=== PATIENT | male | born 1945 | race Caucasian/White ===

== ENCOUNTER → 2016-07-25 | Outpatient (CLI) | payer OTHER ==
[~2016-07-25] MED LIST: GADOBUTROL 10 ML VIAL IVP ONE
--- NOTE | 2016-07-25 15:34 | MR ---
MRI of the Brain(Without and With Contrast) Contrast: 8 mL intravenous Gadavist without complication. History: Follow-up left occipital glioblastoma multiforme Comparison: 05/13/16 Technique: Sagittal and axial T1-weighted images. Axial fast T2 2nd echo, GRE, diffusion and FLAIR im ages. Postgadolinium sagittal, axial and coronal images. Findings: The left occipital surgical bed is stable without evidence of abnormal marginal or internal enhancement. Adjacent gliosis/vasogenic edema is stable. The overlying occipital bone flap remains i n excellent position. The ambient cistern remains patent. There are no abnormal extra-axial fluid col lections. Ventricular size is stable and normal. The remainder of the brain remains normal. Impression: Stable left occipital operative bed. No evidence for recurrent glioblastoma.
== END ==
LOC: FIMAGING 11:59
PROVIDERS: ATTEND Internal Medicine Hematology & Oncology
DX: Z08 Encounter for follow-up examination after completed treatment for malignant neoplasm (principal)
CPT/HCPCS: A9585

== ENCOUNTER → 2016-10-25 | Outpatient (CLI) | payer OTHER ==
[2016-10-25 07:29] LABS: CREATININE 0.7 mg/dL (0.7-1.3); GLOMERULAR FILTRATION RATE > 60
== END ==
LOC: FIMAGING 06:40
PROVIDERS: ATTEND Internal Medicine Hematology & Oncology
DX: Z85.841 Personal history of malignant neoplasm of brain (principal); Z08 Encounter for follow-up examination after completed treatment for malignant neoplasm
CPT/HCPCS: A9585